=== PATIENT | female | born 1995 | race Caucasian/White ===

== ENCOUNTER 2017-03-06 17:38 | Emergency (ER) | payer OTHER ==
[2017-03-06 17:44] VITALS: BP 117/77; PULSE 86; TEMP 98; BMI 24.2
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
== END 2017-03-06 19:32 | disposition home or self-care (01) ==
LOC: JERFT 17:38
DX: M54.5 Low back pain (principal); V43.52XA Car driver injured in collision with other type car in traffic accident, initial encounter; Y92.414 Local residential or business street as the place of occurrence of the external cause; Y93.89 Activity, other specified; Y99.8 Other external cause status
CPT/HCPCS: 84703; 99281-25